=== PATIENT | male | born 1965 | race Caucasian/White ===

== ENCOUNTER 2016-09-12 17:43 | Emergency (ER) | payer MEDICAID ==
[~2016-09-12] VITALS: Ht 172.7 cm; Wt 80.7 kg
[2016-09-12 17:47] VITALS: BP 148/95; PULSE 104; RESP 20; TEMP 97.9; O2SAT 99
--- NOTE | 2016-09-12 17:52 | NUR ---
Pt placed to ER bed 07 and to gown. Pt report given to JUDIE Mcfarlane.
[2016-09-12] MEDS ORDERED: NACL 0.9% 1,000 ML IV ONE (17:59)
--- NOTE | 2016-09-12 18:00 | NUR ---
Dr. Peraza at bedside examing the pt.
--- NOTE | 2016-09-12 18:00 | NUR ---
Pt. to ER AAOx4 from home c/o left flank pain for past 2 days states that he has a Hx of kidney stones, the flank pain is constant, states he noticed blood in urine a couple days ago, denies N/V/D denies SOB, denies chest pain, pain 6/10, clear speech follows commands
--- NOTE | 2016-09-12 18:10 | NUR ---
# 20 gauge angiocath placed to RAC. Use of asceptic technique. Opsite placed over site. Blood return noted. Blood for lab drawn from site. Flushed with 10 cc of normal saline. No evidence of infiltration noted. Patient tolerated well.
--- NOTE | 2016-09-12 18:15 | NUR ---
pt. out to CT via [facility]
--- NOTE | 2016-09-12 18:26 | NUR ---
pt. back to bed 7 via [facility]
[2016-09-12 18:30] LABS: BILIRUBIN,URINE NEGATIVE (NEGATIVE); BLOOD, URINE 3+ (NEGATIVE); CLARITY/URINE CLEAR (CLEAR); COLOR,URINE YELLOW (YELLOW); GLUCOSE,URINE NEGATIVE (NEGATIVE); KETONES,URINE NEGATIVE (NEGATIVE); LEUKOCYTE ESTERASE ,URINE NEGATIVE (NEGATIVE); NITRITE, URINE NEGATIVE (NEGATIVE); PH,URINE 5.5 (5.0-8.0); PROTEIN URINE NEGATIVE (NEGATIVE); UROBILINOGEN,URINE 0.2 (0.2-1.0)
[2016-09-12 18:36] LABS: CALCIUM 8.6 mg/dL (8.4-11.0); CREATININE 2.6 mg/dL (0.55-1.30); POTASSIUM 4.2 mmol/L (3.5-5.1)
[2016-09-12 18:39] LABS: BASOPHILS % (AUTO) 0.4 % (0.0-2.0); EOSINOPHILS # (AUTO) 0.3 K/uL (0.0-0.4); EOSINOPHILS % (AUTO) 3.3 % (0.0-4.0); HEMATOCRIT 38.2 % (36-54); HEMOGLOBIN 12.8 g/dL (14.0-18.0); MEAN CORPUSCULAR HEMOGLOBIN 29 pg (27-31); MEAN CORPUSCULAR HGB CONC 34 % (32-36); MEAN CORPUSCULAR VOLUME 86 fL (79.0-98.0); MONOCYTES # (AUTO) 0.6 K/uL (0.0-1.0); MONOCYTES % (AUTO) 5.7 % (1.7-9.3); NEUTROPHILS % (AUTO) 70.6 % (40.0-70.0); PLATELET COUNT (AUTO) 316 K/uL (130-430); RED BLOOD CELL COUNT(AUTO) 4.47 MIL/uL (4.2-6.2); RED CELL DISTRIBUTION WIDTH 12.7 % (9.0-15.0); WHITE BLOOD COUNT (AUTO) 9.9 K/uL (4.8-10.8)
[2016-09-12 18:40] LABS: INR 0.9 (0.80-1.20); PROTHROMBIN TIME 9.5 SECS (9.5-12.5)
[2016-09-12 18:42] LABS: ALBUMIN 3.9 g/dL (3.4-4.8); TOTAL BILIRUBIN 0.4 mg/dL (0.0-1.0); TOTAL PROTEIN, SERUM 7.4 g/dL (6.4-8.3)
[2016-09-12] MEDS ORDERED: KETOROLAC TROMETHAMINE 30 MG VIAL IVP ONE (18:45)
[2016-09-12 18:50] LABS: RBC,URINE 80-100 /HPF (0-3)
[2016-09-12 18:51] LABS: BACTERIA,URINE FEW /HPF (None Seen); MUCUS,URINE None Seen /LPF (None Seen)
[2016-09-12 19:40] VITALS: BP 128/76; PULSE 78; RESP 20; TEMP 97.9; O2SAT 99
--- NOTE | 2016-09-12 19:40 | NUR ---
Patient given written and verbal discharge instructions and verbalizes understanding. ER MD Dr. Peraza discussed with patient the results and treatment provided. Patient in stable condition. ID arm band removed. IV catheter removed intact and dressing applied, no active bleeding. Rx of zofran doxycycline tylenol given. Patient educated on pain management and to follow up with PMD. Pain Scale 0/10 Opportunity for questions provided and answered.
== END 2016-09-12 19:40 | disposition home or self-care (01) ==
LOC: SED 17:43
DX: N13.2 Hydronephrosis with renal and ureteral calculous obstruction (principal); N28.9 Disorder of kidney and ureter, unspecified; N28.89 Other specified disorders of kidney and ureter
CPT/HCPCS: 36415; 74176; 80053; 81000; 82150; 83690; 85025; 85610; 85730; 96361; 96374; 99285; J1885; J7030

== ENCOUNTER 2016-10-22 16:26 | Emergency (ER) | payer MEDICAID ==
[~2016-10-22] VITALS: Ht 170.2 cm; Wt 78.9 kg
[2016-10-22 16:30] VITALS: BP_SYST 149
--- NOTE | 2016-10-22 16:30 | NUR ---
Patient triaged and placed in waiting room. VSS and patient appears in no acute distress at this time. MD notified of need for MSE.
--- NOTE | 2016-10-22 17:15 | NUR ---
Placed in room 3 . Placed on site monitor, blood pressure machine and pulse oximeter. To gown for exam. Side rails up. Report given to Laverne DIMAS
--- NOTE | 2016-10-22 17:30 | NUR ---
Pt presents to ER with rt foot pain. Noted redness, swelling and warmth. Reports pain is 1/10, but 6/10 with ambulation. Denies any trauma to rt foot. Reports waking up and feeling pain. When he took his sock off it was red and swollen. Pt is A&O x4. No acute distress
--- NOTE | 2016-10-22 17:45 | NUR ---
ER at bedside examining patient.
--- NOTE | 2016-10-22 17:51 | NUR ---
Pt in xray for xray of rt foot.
--- NOTE | 2016-10-22 19:11 | NUR ---
Patient given written and verbal discharge instructions and verbalizes understanding. ER MD discussed with patient the results and treatment provided. Patient in stable condition. ID arm band removed. Rx of tramadol, keflex, naproxen given. Patient educated on pain management and to follow up with PMD. Pain Scale 0/10. Opportunity for questions provided and answered.
[2016-10-22 19:13] VITALS: BP_SYST 130
== END 2016-10-22 19:13 | disposition home or self-care (01) ==
LOC: SED 16:26
DX: L03.115 Cellulitis of right lower limb (principal)
CPT/HCPCS: 99284

== ENCOUNTER 2016-12-29 16:38 | Inpatient (IN) | payer MEDICAID ==
[~2016-12-29] VITALS: Ht 172.7 cm; Wt 79.4 kg
[2016-12-29 16:38] VITALS: BP_SYST 150
[2016-12-29] MEDS ORDERED: NACL 0.9% 1,000 ML IV ONE ×3 (17:00→18:30)
[2016-12-29] MEDS ORDERED: KETOROLAC TROMETHAMINE 30 MG VIAL IVP ONE (17:00)
[2016-12-29] MEDS ORDERED: ONDANSETRON HCL 4 MG/2 ML VIAL IVP ONE (17:00)
[2016-12-29 17:09] LABS: HEMOGLOBIN 12.4 g/dL (14.0-18.0)
[2016-12-29 17:13] LABS: BASOPHILS % (AUTO) 0.4 % (0.0-2.0); EOSINOPHILS # (AUTO) 0.2 K/uL (0.0-0.4); EOSINOPHILS % (AUTO) 2.1 % (0.0-4.0); HEMATOCRIT 37.5 % (36-54); LYMPHOCYTES # (AUTO) 1.9 K/uL (1.0-5.5); LYMPHOCYTES % (AUTO) 16.9 % (20.5-51.5); MEAN CORPUSCULAR HEMOGLOBIN 29 pg (27-31); MEAN CORPUSCULAR HGB CONC 33 % (32-36); MEAN CORPUSCULAR VOLUME 89 fL (79.0-98.0); MONOCYTES # (AUTO) 0.7 K/uL (0.0-1.0); MONOCYTES % (AUTO) 6.8 % (1.7-9.3); NEUTROPHILS # (AUTO) 8.1 K/uL (1.8-7.7); NEUTROPHILS % (AUTO) 73.8 % (40.0-70.0); PLATELET COUNT (AUTO) 383 K/uL (130-430); RED BLOOD CELL COUNT(AUTO) 4.23 MIL/uL (4.2-6.2); RED CELL DISTRIBUTION WIDTH 12.7 % (9.0-15.0); WHITE BLOOD COUNT (AUTO) 10.9 K/uL (4.8-10.8)
[2016-12-29 17:23] LABS: CALCIUM 9.1 mg/dL (8.4-11.0); CREATININE 6.64 mg/dL (0.55-1.30); POTASSIUM 4.2 mmol/L (3.5-5.1)
[2016-12-29 17:29] LABS: TOTAL BILIRUBIN 0.3 mg/dL (0.0-1.0)
[2016-12-29] MEDS ORDERED: MORPHINE 4 MG/ML INJ. SYRINGE IVP ONE (18:00)
[2016-12-29] MEDS ORDERED: cefTRIAXone 1 GM IVPB PREMIX 50 ML IV ONE (19:00)
[2016-12-29 19:59] VITALS: BP_SYST 130
[2016-12-29 20:00] VITALS: BP_SYST 122
[2016-12-29] MEDS: NACL 0.9% 1,000 ML IV SCH (21:01)
[2016-12-29] MEDS ORDERED: ONDANSETRON HCL 4 MG/2 ML VIAL IVP PRN (22:15)
[2016-12-29] MEDS ORDERED: MORPHINE 4 MG/ML INJ. SYRINGE IVP PRN (22:15)
[2016-12-29] MEDS ORDERED: MORPHINE 2 MG/ML INJ. SYRINGE IVP PRN (22:15)
[2016-12-29] MEDS ORDERED: ACETAMINOPHEN 325 MG TABLET PO PRN (22:15)
[2016-12-29] MEDS: TAMSULOSIN HCL 0.4 MG CAP PO SCH (22:15)
[2016-12-30] VITALS (7 sets, daily range): BP systolic 111–145
[2016-12-30] LABS: INR 0.9 (0.80-1.20); PROTHROMBIN TIME 10.2 SECS (9.5-12.5)
[2016-12-30] MEDS ORDERED: IOHEXOL 50 ML IV ONE (00:31)
[2016-12-30] MEDS ORDERED: LR 1,000 ML IV SCH (00:43)
[2016-12-30] MEDS ORDERED: METOCLOPRAMIDE HCL 10 MG/2 ML VIAL IVP PRN (00:45)
[2016-12-30] MEDS ORDERED: MORPHINE 2 MG/ML INJ. SYRINGE IVP PRN ×3 (00:45)
[2016-12-30 01:27] LABS: BILIRUBIN,URINE NEGATIVE (NEGATIVE); BLOOD, URINE 3+ (NEGATIVE); CLARITY/URINE SL CLOUDY (CLEAR); COLOR,URINE YELLOW (YELLOW); GLUCOSE,URINE NEGATIVE (NEGATIVE); KETONES,URINE TRACE (NEGATIVE); LEUKOCYTE ESTERASE ,URINE 2+ (NEGATIVE); NITRITE, URINE NEGATIVE (NEGATIVE); PH,URINE 5.5 (5.0-8.0); PROTEIN URINE TRACE (NEGATIVE); UROBILINOGEN,URINE 0.2 (0.2-1.0)
[2016-12-30 01:35] LABS: BACTERIA,URINE MODERATE /HPF (None Seen); WBC,URINE 20-50 /HPF (0-3)
[2016-12-30] MEDS: NACL 0.9% 1,000 ML IV SCH ×6 (02:04→18:53)
[2016-12-30 07:56] LABS: BASOPHILS % (AUTO) 0.4 % (0.0-2.0); EOSINOPHILS # (AUTO) 0.2 K/uL (0.0-0.4); EOSINOPHILS % (AUTO) 2.3 % (0.0-4.0); HEMATOCRIT 31.5 % (36-54); HEMOGLOBIN 10.6 g/dL (14.0-18.0); LYMPHOCYTES # (AUTO) 1.3 K/uL (1.0-5.5); LYMPHOCYTES % (AUTO) 15.3 % (20.5-51.5); MEAN CORPUSCULAR HEMOGLOBIN 30 pg (27-31); MEAN CORPUSCULAR HGB CONC 34 % (32-36); MEAN CORPUSCULAR VOLUME 88 fL (79.0-98.0); MONOCYTES # (AUTO) 0.7 K/uL (0.0-1.0); MONOCYTES % (AUTO) 8.4 % (1.7-9.3); NEUTROPHILS # (AUTO) 6.4 K/uL (1.8-7.7); NEUTROPHILS % (AUTO) 73.6 % (40.0-70.0); PLATELET COUNT (AUTO) 295 K/uL (130-430); RED BLOOD CELL COUNT(AUTO) 3.59 MIL/uL (4.2-6.2); RED CELL DISTRIBUTION WIDTH 12.9 % (9.0-15.0); WHITE BLOOD COUNT (AUTO) 8.6 K/uL (4.8-10.8)
[2016-12-30 08:06] LABS: ALBUMIN 2.9 g/dL (3.4-4.8); CALCIUM 7.9 mg/dL (8.4-11.0); CREATININE 5.36 mg/dL (0.55-1.30); PHOSPHORUS 5.3 mg/dL (2.7-4.5); POTASSIUM 4.2 mmol/L (3.5-5.1); TOTAL BILIRUBIN 0.3 mg/dL (0.0-1.0); TOTAL PROTEIN, SERUM 6.4 g/dL (6.4-8.3); URIC ACID 12.4 mg/dL (2.4-7.0)
[2016-12-30 08:50] LABS: BILIRUBIN,URINE NEGATIVE (NEGATIVE); BLOOD, URINE 3+ (NEGATIVE); CLARITY/URINE CLEAR (CLEAR); COLOR,URINE YELLOW (YELLOW); GLUCOSE,URINE NEGATIVE (NEGATIVE); KETONES,URINE NEGATIVE (NEGATIVE); LEUKOCYTE ESTERASE ,URINE TRACE (NEGATIVE); NITRITE, URINE NEGATIVE (NEGATIVE); PH,URINE 5.5 (5.0-8.0); PROTEIN URINE TRACE (NEGATIVE); UROBILINOGEN,URINE 0.2 (0.2-1.0)
[2016-12-30] MEDS: TAMSULOSIN HCL 0.4 MG CAP PO SCH (08:57)
[2016-12-30] MEDS ORDERED: CITRIC ACID/SODIUM CITRATE 30 ML UDC PO SCH (09:00)
[2016-12-30 09:06] LABS: BARBITURATE, URINE NEGATIVE (NEG <=200); BENZODIAZEPINE, URINE NEGATIVE (NEG <=150); CANNABINOID, URINE NEGATIVE (NEG <=50); COCAINE, URINE NEGATIVE (NEG <=150); METHAMPHETAMINES SCREEN,URINE NEGATIVE (NEG <=500); PHENCYCLIDINE SCREEN,URINE NEGATIVE (NEG <=25); URINE AMPHETAMINE NEGATIVE (NEG <=500); URINE METHADONE NEGATIVE (NEG <=200)
[2016-12-30 09:07] LABS: OPIATE, URINE POSITIVE (NEG <=100); UR TRICYCLIC ANTIDEPRESSANTS NEGATIVE (NEG <=300); URINE OXYCODONE SCREEN NEGATIVE (NEG <=100); URINE PROPOXYPHENE SCREEN NEGATIVE (NEG <=300)
[2016-12-30 09:13] LABS: RBC,URINE 20-50 /HPF (0-3)
[2016-12-30 09:14] LABS: BACTERIA,URINE RARE /HPF (None Seen); MUCUS,URINE 1+ /LPF (None Seen)
[2016-12-30] MEDS ORDERED: cefTRIAXone 1 GM in D5W 50 ML IV SCH (21:00)
== END 2016-12-30 20:00 | disposition short-term general hospital (02) | DRG 465 ==
LOC: SED 16:38 → STU 18:53 → SMU 12-30 16:35
PROVIDERS: ADMIT Internal Medicine; ATTEND Internal Medicine
PROC: 0T788DZ Dilation of Bilateral Ureters with Intraluminal Device, Via Natural or Artificial Opening Endoscopic (ICD-10-PCS; principal; 2016-12-29)
PROC: BT141ZZ Fluoroscopy of Kidneys, Ureters and Bladder using Low Osmolar Contrast (ICD-10-PCS; 2016-12-29)
DX: N13.2 Hydronephrosis with renal and ureteral calculous obstruction (principal); N17.9 Acute kidney failure, unspecified; K85.90 Acute pancreatitis without necrosis or infection, unspecified; E87.2 Acidosis; F17.210 Nicotine dependence, cigarettes, uncomplicated; N10 Acute pyelonephritis; Z87.442 Personal history of urinary calculi; Z09 Encounter for follow-up examination after completed treatment for conditions other than malignant neoplasm; Z71.6 Tobacco abuse counseling
CPT/HCPCS: 36415; 71010; 76000; 80053; 80307; 81000-TC; 83605; 83690-TC; 84100-TC; 84550-TC; 85025; 85610-TC; 85730-TC; 86886; 86900; 86901; 87040-TC; 87081; 87086; 93005; 94010; 94760; 96365; 96375; 99285; C1758; C2625; J0696; J1885; J2270; J2405; J7030; J7060; Q9967

== ENCOUNTER 2017-01-24 08:15 | Emergency (ER) | payer MEDICAID ==
[~2017-01-24] VITALS: Ht 172.7 cm; Wt 75.7 kg
[2017-01-24 08:22] VITALS: BP_SYST 151
[2017-01-24] MEDS ORDERED: KETOROLAC TROMETHAMINE 60 MG/2 ML VIAL IM ONE (08:45)
[2017-01-24] MEDS ORDERED: HYDROcodone/ACETAMIN 10-325 MG TAB PO ONE (08:45)
[2017-01-24 09:41] VITALS: BP_SYST 137
== END 2017-01-24 09:41 | disposition home or self-care (01) ==
LOC: SED 08:15
DX: M10.9 Gout, unspecified (principal); Z87.442 Personal history of urinary calculi
CPT/HCPCS: 96372; 99283; J1885

== ENCOUNTER 2017-05-06 11:54 | Emergency (ER) | payer MEDICAID ==
[~2017-05-06] VITALS: Ht 170.2 cm; Wt 79.4 kg
[2017-05-06 12:03] VITALS: BP_SYST 138
[2017-05-06] MEDS ORDERED: KETOROLAC TROMETHAMINE 60 MG/2 ML VIAL IM ONE (14:45)
[2017-05-06 15:20] VITALS: BP_SYST 138
== END 2017-05-06 15:20 | disposition home or self-care (01) ==
LOC: SED 11:54
DX: M10.9 Gout, unspecified (principal); Z87.442 Personal history of urinary calculi
CPT/HCPCS: 96372; 99283; J1885

== ENCOUNTER 2018-01-09 01:18 | Emergency (ER) | payer MEDICAID ==
[~2018-01-09] VITALS: Ht 170.2 cm; Wt 79.8 kg
[~2018-01-09 01:18] MED LIST: ATII2 IVP; DOCU-144 PO; HYDR20VI5 IVP; HYDR2VIA2 IVP
[2018-01-09 01:25] VITALS: BP_SYST 152
[2018-01-09] MEDS ORDERED: LIDOCAINE VISCOUS 2%, 15 ML UDC MM ONE (01:45)
[2018-01-09] MEDS ORDERED: AMOXICILLIN 500 MG CAPSULE PO ONE (01:45)
[2018-01-09 02:16] VITALS: BP_SYST 143
== END 2018-01-09 02:16 | disposition home or self-care (01) ==
LOC: SED 01:18
DX: J02.9 Acute pharyngitis, unspecified (principal); J44.9 Chronic obstructive pulmonary disease, unspecified; Z87.442 Personal history of urinary calculi; Z79.899 Other long term (current) drug therapy
CPT/HCPCS: 36415; 86403; 87081; 99284; J2001